=== PATIENT | female | born 1965 | race Caucasian/White ===

== ENCOUNTER 2018-05-25 06:37 | Day surgery (SDC) | payer OTHER ==
[2018-05-25] MEDS ORDERED: MEPERIDINE HCL/PF 100 MG/ML AMP ONE (08:34)
[2018-05-25] MEDS ORDERED: SIMETHICONE 40 MG/0.6 ML ML ONE (08:35)
[2018-05-25] MEDS ORDERED: GLYCOPYRROLATE 0.2 MG/ML VIAL ONE (08:41)
[2018-05-25] MEDS ORDERED: MIDAZOLAM HCL 5 MG/5 ML VIAL ONE (08:45)
[2018-05-25] MEDS: MIDAZOLAM HCL 5 MG/5 ML VIAL ONE ×3 (09:15→09:32)
[2018-05-25] MEDS ORDERED: BENZOCAINE 20% 0.5mL UD SPRAY MM ONE (11:30)
[2018-05-25 13:41] VITALS: BP_SYST 111
== END 2018-05-25 10:20 | disposition home or self-care (01) ==
LOC: SDS 06:37 → SMU 06:37 → SDS 10:20
PROVIDERS: ATTEND Colon & Rectal Surgery
DX: D50.9 Iron deficiency anemia, unspecified (principal); K29.70 Gastritis, unspecified, without bleeding; K29.80 Duodenitis without bleeding; E11.9 Type 2 diabetes mellitus without complications; E78.5 Hyperlipidemia, unspecified; G43.109 Migraine with aura, not intractable, without status migrainosus; Z80.0 Family history of malignant neoplasm of digestive organs; Z79.899 Other long term (current) drug therapy; Z79.84 Long term (current) use of oral hypoglycemic drugs
CPT/HCPCS: 36415; 43239; 45378; 82962; 87081; 88305; 88313; J2175; J2250; J7030; J3490